=== PATIENT | male | born 1960 | race Caucasian/White ===

== ENCOUNTER 2021-01-02 14:24 | Inpatient (IN) | payer OTHER ==
[~2021-01-02] VITALS: Ht 165.1 cm; Wt 60.8 kg
[2021-01-02] MEDS ORDERED: ACETAMINOPHEN 325 MG TABLET PO PRN (17:45)
[2021-01-02] MEDS ORDERED: OxyCODONE HCL 5 MG IR TABLET PO PRN (17:45)
[2021-01-02] MEDS ORDERED: HydrOXYzine HCL 25 MG TABLET PO PRN (17:45)
[2021-01-02] MEDS ORDERED: DEXTROSE 50%-WATER 25 GM/50 ML SYRINGE IVP PRN (17:45)
[2021-01-02 18:09] VITALS: BP 138/76
[2021-01-02] MEDS: INSULIN LISPRO 100 UNITS/ML SQ PRN ×2 (19:00→20:26)
[2021-01-02 19:09] LABS: GLUCOMETER DEV NAME(LOC) 2WR.1C; GLUCOSE,POINT OF CARE 189 MG/DL (70-110)
[2021-01-02] MEDS: GABAPENTIN 300 MG CAPSULE PO SCH (20:27)
[2021-01-02] MEDS: LevETIRAcetam 500 MG TABLET PO SCH (20:27)
[2021-01-02] MEDS: DOCUSATE SODIUM 100 MG CAPSULE PO SCH (20:27)
[2021-01-02] MEDS: ENOXAPARIN SODIUM 30 MG/0.3 ML PF SYRINGE SQ SCH (20:27)
[2021-01-02] MEDS ORDERED: SENNA 187 MG TABLET PO SCH (21:00)
[2021-01-02 21:35] LABS: GLUCOMETER DEV NAME(LOC) 2WR.1C; GLUCOSE,POINT OF CARE 196 MG/DL (70-110)
[2021-01-02 23:50] VITALS: BP 152/87
[2021-01-03 06:13] LABS: GLUCOMETER DEV NAME(LOC) 2WR.2B; GLUCOSE,POINT OF CARE 115 MG/DL (70-110)
[2021-01-03 06:48] LABS: BASOPHILS % (AUTO) 0.7 % (0.0-2.0); EOSINOPHILS % (AUTO) 2.9 % (1.0-6.0); HEMATOCRIT 41.4 % (41-53); HEMOGLOBIN 14.4 g/dL (13.5-17.5); LYMPHOCYTES # (AUTO) 1.5 K/uL (1.0-4.8); MEAN CORPUSCULAR HEMOGLOBIN 31.3 pg (26.0-34.0); MEAN CORPUSCULAR HGB CONC 34.8 G/dL (31.0-37.0); MEAN CORPUSCULAR VOLUME 90 fL (80-100); MONOCYTES # (AUTO) 0.6 K/uL (0.1-1.0); MONOCYTES % (AUTO) 8.6 % (2.0-9.0); NEUTROPHILS # (AUTO) 4.2 K/uL (1.8-7.7); NEUTROPHILS % (AUTO) 64.8 % (40.0-70.0); PLATELET COUNT (AUTO) 142 K/uL (150-450); RED BLOOD CELL COUNT(AUTO) 4.61 MIL/uL (4.50-5.90); RED CELL DISTRIBUTION WIDTH 12.5 % (11.5-14.5)
[2021-01-03 07:45] VITALS: BP 163/94
[2021-01-03 07:47] LABS: ALANINE AMINOTRANSFERASE 23 U/L (12-78); ALBUMIN 3.7 g/dL (3.4-5.0); ALKALINE PHOSPHATASE 71 U/L (46-116); ANION GAP 7 mmol/L (8-16); ASPARTATE AMINOTRANSFERASE 11 U/L (15-37); BILIRUBIN,TOTAL 0.9 mg/dL (0.1-1.0); CALCIUM, TOTAL 9.1 mg/dL (8.8-10.5); CARBON DIOXIDE 31 mmol/L (22-29); CHLORIDE 104 mmol/L (98-107); CREATININE 0.72 mg/dL (0.60-1.30); GLOMERULAR FILTR. RATE CALC > 60 mL/min (>60); GLUCOSE,RANDOM 110 mg/dL (70-110); POTASSIUM 3.7 mmol/L (3.5-5.1); SODIUM SERUM 142 mmol/L (136-145); TOTAL PROTEIN, SERUM 7.2 g/dL (6.4-8.2); UREA NITROGEN, BLOOD 25 mg/dL (7-18)
[2021-01-03] MEDS: DOCUSATE SODIUM 100 MG CAPSULE PO SCH (08:46)
[2021-01-03] MEDS: LOSARTAN POTASSIUM 50 MG TABLET PO SCH (08:46)
[2021-01-03] MEDS: LevETIRAcetam 500 MG TABLET PO SCH ×2 (08:46→20:37)
[2021-01-03] MEDS: ENOXAPARIN SODIUM 30 MG/0.3 ML PF SYRINGE SQ SCH ×2 (08:46→20:38)
[2021-01-03] MEDS: GABAPENTIN 300 MG CAPSULE PO SCH ×3 (08:46→20:37)
[2021-01-03] MEDS: AmLODIPine BESYLATE 10 MG TABLET PO SCH (08:47)
[2021-01-03] MEDS: LIDOCAINE 5% TRANSDERMAL PATCH TD SCH (08:47)
[2021-01-03] MEDS ORDERED: METOPROLOL TARTRATE 25 MG TABLET PO SCH (09:00)
[2021-01-03] MEDS ORDERED: MELATONIN 5 MG TABLET PO PRN (13:00)
[2021-01-03 16:06] LABS: GLUCOMETER DEV NAME(LOC) 2WR.2B; GLUCOSE,POINT OF CARE 135 MG/DL (70-110)
[2021-01-03 17:21] VITALS: BP 135/79
[2021-01-03 17:39] LABS: GLUCOMETER DEV NAME(LOC) 2WR.2B; GLUCOSE,POINT OF CARE 105 MG/DL (70-110)
[2021-01-03] MEDS: TAMSULOSIN HCL 0.4 MG CAPSULE PO SCH (20:37)
[2021-01-03] MEDS: DOCUSATE SODIUM 250 MG CAPSULE PO SCH (20:37)
[2021-01-03] MEDS: -LIDODERM PATCH NOTE- MISC SCH (20:38)
[2021-01-03] MEDS: METOPROLOL TARTRATE 25 MG TABLET PO SCH (20:38)
[2021-01-03] MEDS: SENNA 187 MG TABLET PO SCH (20:38)
[2021-01-03] MEDS: INSULIN LISPRO 100 UNITS/ML SQ PRN (20:57)
[2021-01-03 22:40] LABS: GLUCOMETER DEV NAME(LOC) 2WR.1C; GLUCOSE,POINT OF CARE 166 MG/DL (70-110)
[2021-01-04] VITALS: BP 148/78
[2021-01-04 06:39] LABS: CHOL/HDL RATIO 3.7 (4.2-7.3)
[2021-01-04 07:07] LABS: GLUCOMETER DEV NAME(LOC) 2WR.1C; GLUCOSE,POINT OF CARE 97 MG/DL (70-110)
[2021-01-04 07:33] LABS: HEMOGLOBIN A1C 5.6 % (3.8-5.6)
[2021-01-04] MEDS: AmLODIPine BESYLATE 10 MG TABLET PO SCH (07:33)
[2021-01-04] MEDS: DOCUSATE SODIUM 250 MG CAPSULE PO SCH ×2 (07:33→20:14)
[2021-01-04] MEDS: LOSARTAN POTASSIUM 50 MG TABLET PO SCH (07:33)
[2021-01-04] MEDS: ENOXAPARIN SODIUM 30 MG/0.3 ML PF SYRINGE SQ SCH ×2 (07:33→20:14)
[2021-01-04] MEDS: GABAPENTIN 300 MG CAPSULE PO SCH ×3 (07:33→20:15)
[2021-01-04] MEDS: METOPROLOL TARTRATE 25 MG TABLET PO SCH ×2 (07:33→20:15)
[2021-01-04] MEDS: LIDOCAINE 5% TRANSDERMAL PATCH TD SCH (07:34)
[2021-01-04] MEDS: LevETIRAcetam 500 MG TABLET PO SCH ×2 (07:34→20:15)
[2021-01-04 08:37] VITALS: BP 140/92
[2021-01-04] MEDS: INSULIN LISPRO 100 UNITS/ML SQ PRN ×2 (12:03→20:23)
[2021-01-04 13:24] LABS: GLUCOMETER DEV NAME(LOC) 2WR.1C; GLUCOSE,POINT OF CARE 146 MG/DL (70-110)
[2021-01-04 16:00] VITALS: BP 149/81
[2021-01-04 17:56] LABS: GLUCOMETER DEV NAME(LOC) 2WR.2B; GLUCOSE,POINT OF CARE 88 MG/DL (70-110)
[2021-01-04 20:00] VITALS: BP 134/74
[2021-01-04] MEDS: SENNA 187 MG TABLET PO SCH (20:14)
[2021-01-04] MEDS: TAMSULOSIN HCL 0.4 MG CAPSULE PO SCH (20:14)
[2021-01-04] MEDS: -LIDODERM PATCH NOTE- MISC SCH (20:15)
[2021-01-04 21:39] LABS: GLUCOMETER DEV NAME(LOC) 2WR.1C; GLUCOSE,POINT OF CARE 176 MG/DL (70-110)
[2021-01-05 01:55] VITALS: BP 150/93
[2021-01-05 06:06] LABS: GLUCOMETER DEV NAME(LOC) 2WR.2B; GLUCOSE,POINT OF CARE 95 MG/DL (70-110)
[2021-01-05 07:30] VITALS: BP 141/73
[2021-01-05] MEDS: ENOXAPARIN SODIUM 30 MG/0.3 ML PF SYRINGE SQ SCH ×2 (08:59→20:28)
[2021-01-05] MEDS: LOSARTAN POTASSIUM 50 MG TABLET PO SCH (09:00)
[2021-01-05] MEDS: GABAPENTIN 300 MG CAPSULE PO SCH ×3 (09:00→20:27)
[2021-01-05] MEDS: DOCUSATE SODIUM 250 MG CAPSULE PO SCH ×2 (09:00→20:27)
[2021-01-05] MEDS: LIDOCAINE 5% TRANSDERMAL PATCH TD SCH (09:00)
[2021-01-05] MEDS: AmLODIPine BESYLATE 10 MG TABLET PO SCH (09:00)
[2021-01-05] MEDS: METOPROLOL TARTRATE 25 MG TABLET PO SCH ×2 (09:00→20:27)
[2021-01-05] MEDS: LevETIRAcetam 500 MG TABLET PO SCH ×2 (09:00→20:26)
[2021-01-05] MEDS: INSULIN LISPRO 100 UNITS/ML SQ PRN ×2 (11:48→20:44)
[2021-01-05 13:20] LABS: GLUCOMETER DEV NAME(LOC) 2WR.2B; GLUCOSE,POINT OF CARE 166 MG/DL (70-110)
[2021-01-05 16:15] VITALS: BP 143/73
[2021-01-05 17:47] LABS: GLUCOMETER DEV NAME(LOC) 2WR.1C; GLUCOSE,POINT OF CARE 140 MG/DL (70-110)
[2021-01-05 20:25] VITALS: BP 149/82
[2021-01-05] MEDS: TAMSULOSIN HCL 0.4 MG CAPSULE PO SCH (20:26)
[2021-01-05] MEDS: SENNA 187 MG TABLET PO SCH (20:27)
[2021-01-05] MEDS: -LIDODERM PATCH NOTE- MISC SCH (20:28)
[2021-01-05 21:18] LABS: GLUCOMETER DEV NAME(LOC) 2WR.2B; GLUCOSE,POINT OF CARE 160 MG/DL (70-110)
[2021-01-06 02:19] VITALS: BP 132/73
[2021-01-06 06:04] LABS: GLUCOMETER DEV NAME(LOC) 2WR.1C; GLUCOSE,POINT OF CARE 101 MG/DL (70-110)
[2021-01-06 08:00] VITALS: BP 153/81
[2021-01-06] MEDS: METOPROLOL TARTRATE 25 MG TABLET PO SCH ×2 (08:52→20:20)
[2021-01-06] MEDS: DOCUSATE SODIUM 250 MG CAPSULE PO SCH ×2 (08:52→20:20)
[2021-01-06] MEDS: LOSARTAN POTASSIUM 50 MG TABLET PO SCH (08:52)
[2021-01-06] MEDS: GABAPENTIN 300 MG CAPSULE PO SCH ×3 (08:52→20:20)
[2021-01-06] MEDS: LevETIRAcetam 500 MG TABLET PO SCH ×2 (08:52→20:19)
[2021-01-06] MEDS: AmLODIPine BESYLATE 10 MG TABLET PO SCH (08:52)
[2021-01-06] MEDS: LIDOCAINE 5% TRANSDERMAL PATCH TD SCH (08:53)
[2021-01-06] MEDS: ENOXAPARIN SODIUM 30 MG/0.3 ML PF SYRINGE SQ SCH ×2 (08:53→20:20)
[2021-01-06] MEDS: INSULIN LISPRO 100 UNITS/ML SQ PRN (12:34)
[2021-01-06 13:54] LABS: GLUCOMETER DEV NAME(LOC) 2WR.1C; GLUCOSE,POINT OF CARE 156 MG/DL (70-110)
[2021-01-06 16:04] VITALS: BP 116/69
[2021-01-06 17:33] LABS: GLUCOMETER DEV NAME(LOC) 2WR.2B; GLUCOSE,POINT OF CARE 134 MG/DL (70-110)
[2021-01-06] MEDS: SENNA 187 MG TABLET PO SCH (20:20)
[2021-01-06] MEDS: TAMSULOSIN HCL 0.4 MG CAPSULE PO SCH (20:20)
[2021-01-06 20:23] VITALS: BP 148/76
[2021-01-06] MEDS: -LIDODERM PATCH NOTE- MISC SCH (20:24)
[2021-01-06 22:13] LABS: GLUCOMETER DEV NAME(LOC) 2WR.2B; GLUCOSE,POINT OF CARE 120 MG/DL (70-110)
[2021-01-07 00:45] VITALS: BP 149/87
[2021-01-07 05:52] LABS: GLUCOMETER DEV NAME(LOC) 2WR.2B; GLUCOSE,POINT OF CARE 112 MG/DL (70-110)
[2021-01-07] MEDS: LIDOCAINE 5% TRANSDERMAL PATCH TD SCH (08:10)
[2021-01-07] MEDS: LOSARTAN POTASSIUM 50 MG TABLET PO SCH (08:10)
[2021-01-07] MEDS: DOCUSATE SODIUM 250 MG CAPSULE PO SCH ×2 (08:10→20:22)
[2021-01-07] MEDS: LevETIRAcetam 500 MG TABLET PO SCH ×2 (08:10→20:22)
[2021-01-07] MEDS: AmLODIPine BESYLATE 10 MG TABLET PO SCH (08:10)
[2021-01-07] MEDS: ENOXAPARIN SODIUM 30 MG/0.3 ML PF SYRINGE SQ SCH ×2 (08:10→20:22)
[2021-01-07] MEDS: METOPROLOL TARTRATE 25 MG TABLET PO SCH ×2 (08:10→20:26)
[2021-01-07] MEDS: GABAPENTIN 300 MG CAPSULE PO SCH ×3 (08:10→20:22)
[2021-01-07 08:40] VITALS: BP 141/77
[2021-01-07 14:03] LABS: GLUCOMETER DEV NAME(LOC) 2WR.2B; GLUCOSE,POINT OF CARE 97 MG/DL (70-110)
[2021-01-07 16:05] VITALS: BP 144/82
[2021-01-07 17:58] LABS: GLUCOMETER DEV NAME(LOC) 2WR.2B; GLUCOSE,POINT OF CARE 103 MG/DL (70-110)
[2021-01-07] MEDS: -LIDODERM PATCH NOTE- MISC SCH (20:22)
[2021-01-07] MEDS: SENNA 187 MG TABLET PO SCH (20:22)
[2021-01-07] MEDS: TAMSULOSIN HCL 0.4 MG CAPSULE PO SCH (20:22)
[2021-01-07 20:25] VITALS: BP 147/93
[2021-01-07 21:42] LABS: GLUCOMETER DEV NAME(LOC) 2WR.2B; GLUCOSE,POINT OF CARE 104 MG/DL (70-110)
[2021-01-08 03:26] VITALS: BP 139/75
[2021-01-08 08:02] VITALS: BP 151/77
[2021-01-08] MEDS: DOCUSATE SODIUM 250 MG CAPSULE PO SCH ×2 (08:05→20:41)
[2021-01-08] MEDS: AmLODIPine BESYLATE 10 MG TABLET PO SCH (08:05)
[2021-01-08] MEDS: GABAPENTIN 300 MG CAPSULE PO SCH ×3 (08:05→20:41)
[2021-01-08] MEDS: ENOXAPARIN SODIUM 30 MG/0.3 ML PF SYRINGE SQ SCH ×2 (08:05→20:41)
[2021-01-08] MEDS: METOPROLOL TARTRATE 25 MG TABLET PO SCH ×2 (08:05→21:17)
[2021-01-08] MEDS: LOSARTAN POTASSIUM 50 MG TABLET PO SCH (08:05)
[2021-01-08] MEDS: LIDOCAINE 5% TRANSDERMAL PATCH TD SCH (08:07)
[2021-01-08 12:45] LABS: GLUCOMETER DEV NAME(LOC) 2WR.2B; GLUCOSE,POINT OF CARE 164 MG/DL (70-110)
[2021-01-08] MEDS: INSULIN LISPRO 100 UNITS/ML SQ PRN (13:10)
[2021-01-08 15:22] LABS: GLUCOMETER DEV NAME(LOC) 2WR.1C; GLUCOSE,POINT OF CARE 136 MG/DL (70-110)
[2021-01-08 16:00] VITALS: BP 149/85
[2021-01-08 18:10] LABS: GLUCOMETER DEV NAME(LOC) 2WR.1C; GLUCOSE,POINT OF CARE 132 MG/DL (70-110)
[2021-01-08] MEDS: SENNA 187 MG TABLET PO SCH (20:40)
[2021-01-08 20:42] VITALS: BP 158/86
[2021-01-08] MEDS: -LIDODERM PATCH NOTE- MISC SCH (21:15)
[2021-01-08] MEDS: TAMSULOSIN HCL 0.4 MG CAPSULE PO SCH (21:17)
[2021-01-08 22:10] LABS: GLUCOMETER DEV NAME(LOC) 2WR.2B; GLUCOSE,POINT OF CARE 123 MG/DL (70-110)
[2021-01-09 00:16] VITALS: BP 168/85
[2021-01-09 05:44] LABS: GLUCOMETER DEV NAME(LOC) 2WR.2B; GLUCOSE,POINT OF CARE 104 MG/DL (70-110)
[2021-01-09 06:45] LABS: ANION GAP 3 mmol/L (8-16); CALCIUM, TOTAL 9.1 mg/dL (8.8-10.5); CARBON DIOXIDE 33 mmol/L (22-29); CHLORIDE 105 mmol/L (98-107); CREATININE 0.69 mg/dL (0.60-1.30); GLOMERULAR FILTR. RATE CALC > 60 mL/min (>60); GLUCOSE,RANDOM 103 mg/dL (70-110); POTASSIUM 3.7 mmol/L (3.5-5.1); SODIUM SERUM 141 mmol/L (136-145); UREA NITROGEN, BLOOD 18 mg/dL (7-18)
[2021-01-09 08:02] VITALS: BP 144/75
[2021-01-09] MEDS: METOPROLOL TARTRATE 25 MG TABLET PO SCH ×3 (08:11→20:36)
[2021-01-09] MEDS: DOCUSATE SODIUM 250 MG CAPSULE PO SCH ×2 (08:11→20:36)
[2021-01-09] MEDS: LOSARTAN POTASSIUM 50 MG TABLET PO SCH (08:12)
[2021-01-09] MEDS: GABAPENTIN 300 MG CAPSULE PO SCH ×3 (08:12→20:36)
[2021-01-09] MEDS: ENOXAPARIN SODIUM 30 MG/0.3 ML PF SYRINGE SQ SCH ×2 (08:12→20:36)
[2021-01-09] MEDS: LIDOCAINE 5% TRANSDERMAL PATCH TD SCH (08:13)
[2021-01-09] MEDS: AmLODIPine BESYLATE 10 MG TABLET PO SCH (08:13)
[2021-01-09 16:09] VITALS: BP 156/78
[2021-01-09 16:20] LABS: GLUCOMETER DEV NAME(LOC) 2WR.1C; GLUCOSE,POINT OF CARE 99 MG/DL (70-110)
[2021-01-09 18:24] LABS: GLUCOMETER DEV NAME(LOC) 2WR.1C; GLUCOSE,POINT OF CARE 98 MG/DL (70-110)
[2021-01-09] MEDS: SENNA 187 MG TABLET PO SCH (20:36)
[2021-01-09 20:49] VITALS: BP 176/84
[2021-01-09] MEDS: -LIDODERM PATCH NOTE- MISC SCH (21:08)
[2021-01-09] MEDS: TAMSULOSIN HCL 0.4 MG CAPSULE PO SCH (21:08)
[2021-01-09 21:17] VITALS: BP 169/84
[2021-01-09 22:02] LABS: GLUCOMETER DEV NAME(LOC) 2WR.1C; GLUCOSE,POINT OF CARE 125 MG/DL (70-110)
[2021-01-10 01:00] VITALS: BP 148/83
[2021-01-10 05:51] LABS: GLUCOMETER DEV NAME(LOC) 2WR.1C; GLUCOSE,POINT OF CARE 97 MG/DL (70-110)
[2021-01-10 07:19] VITALS: BP 156/88
[2021-01-10] MEDS: ENOXAPARIN SODIUM 30 MG/0.3 ML PF SYRINGE SQ SCH ×2 (08:03→20:56)
[2021-01-10] MEDS: LIDOCAINE 5% TRANSDERMAL PATCH TD SCH (08:03)
[2021-01-10] MEDS: LOSARTAN POTASSIUM 50 MG TABLET PO SCH (08:04)
[2021-01-10] MEDS: AmLODIPine BESYLATE 10 MG TABLET PO SCH (08:04)
[2021-01-10] MEDS: METOPROLOL TARTRATE 25 MG TABLET PO SCH ×2 (08:04→21:00)
[2021-01-10] MEDS: GABAPENTIN 300 MG CAPSULE PO SCH ×3 (08:04→20:56)
[2021-01-10] MEDS: DOCUSATE SODIUM 250 MG CAPSULE PO SCH ×2 (08:04→20:57)
[2021-01-10 09:48] VITALS: BP 141/64
[2021-01-10 14:38] LABS: GLUCOMETER DEV NAME(LOC) 2WR.1C; GLUCOSE,POINT OF CARE 100 MG/DL (70-110)
[2021-01-10 16:22] VITALS: BP 143/78
[2021-01-10] MEDS: INSULIN LISPRO 100 UNITS/ML SQ PRN (17:26)
[2021-01-10 17:36] LABS: GLUCOMETER DEV NAME(LOC) 2WR.2B; GLUCOSE,POINT OF CARE 169 MG/DL (70-110)
[2021-01-10 20:50] VITALS: BP 140/67
[2021-01-10] MEDS: TAMSULOSIN HCL 0.4 MG CAPSULE PO SCH (20:56)
[2021-01-10] MEDS: -LIDODERM PATCH NOTE- MISC SCH (20:57)
[2021-01-10] MEDS: SENNA 187 MG TABLET PO SCH (20:57)
[2021-01-10 23:17] LABS: GLUCOMETER DEV NAME(LOC) 2WR.2B; GLUCOSE,POINT OF CARE 115 MG/DL (70-110)
[2021-01-11 00:30] VITALS: BP 155/81
[2021-01-11 05:45] LABS: GLUCOMETER DEV NAME(LOC) 2WR.1C; GLUCOSE,POINT OF CARE 112 MG/DL (70-110)
[2021-01-11 08:00] VITALS: BP 147/82
[2021-01-11] MEDS: LIDOCAINE 5% TRANSDERMAL PATCH TD SCH (08:22)
[2021-01-11] MEDS: LOSARTAN POTASSIUM 50 MG TABLET PO SCH (08:23)
[2021-01-11] MEDS: DOCUSATE SODIUM 250 MG CAPSULE PO SCH ×2 (08:23→20:39)
[2021-01-11] MEDS: METOPROLOL TARTRATE 25 MG TABLET PO SCH ×2 (08:23→20:40)
[2021-01-11] MEDS: AmLODIPine BESYLATE 10 MG TABLET PO SCH (08:23)
[2021-01-11] MEDS: GABAPENTIN 300 MG CAPSULE PO SCH ×3 (08:23→20:40)
[2021-01-11] MEDS: ENOXAPARIN SODIUM 30 MG/0.3 ML PF SYRINGE SQ SCH (08:23)
[2021-01-11 10:04] LABS: BASOPHILS % (AUTO) 1.2 % (0.0-2.0); EOSINOPHILS % (AUTO) 2.4 % (1.0-6.0); HEMATOCRIT 39.4 % (41-53); HEMOGLOBIN 13.6 g/dL (13.5-17.5); LYMPHOCYTES # (AUTO) 0.8 K/uL (1.0-4.8); LYMPHOCYTES % (AUTO) 15.1 % (22.0-44.0); MEAN CORPUSCULAR HEMOGLOBIN 31.1 pg (26.0-34.0); MEAN CORPUSCULAR HGB CONC 34.6 G/dL (31.0-37.0); MEAN CORPUSCULAR VOLUME 90 fL (80-100); MONOCYTES # (AUTO) 0.4 K/uL (0.1-1.0); MONOCYTES % (AUTO) 8.2 % (2.0-9.0); NEUTROPHILS # (AUTO) 3.6 K/uL (1.8-7.7); NEUTROPHILS % (AUTO) 73.1 % (40.0-70.0); PLATELET COUNT (AUTO) 178 K/uL (150-450); RED BLOOD CELL COUNT(AUTO) 4.38 MIL/uL (4.50-5.90); RED CELL DISTRIBUTION WIDTH 12.5 % (11.5-14.5)
[2021-01-11] MEDS: INSULIN LISPRO 100 UNITS/ML SQ PRN ×2 (12:18→20:48)
[2021-01-11] MEDS: FAMOTIDINE 20 MG TABLET PO SCH (15:41)
[2021-01-11 16:50] LABS: GLUCOMETER DEV NAME(LOC) 2WR.1C; GLUCOSE,POINT OF CARE 171 MG/DL (70-110)
[2021-01-11 17:35] LABS: GLUCOMETER DEV NAME(LOC) 2WR.2B; GLUCOSE,POINT OF CARE 85 MG/DL (70-110)
[2021-01-11 17:48] VITALS: BP 158/59
[2021-01-11 20:26] LABS: GLUCOMETER DEV NAME(LOC) 2WR.1C; GLUCOSE,POINT OF CARE 188 MG/DL (70-110)
[2021-01-11 20:30] VITALS: BP 155/71
[2021-01-11] MEDS: TAMSULOSIN HCL 0.4 MG CAPSULE PO SCH (20:40)
[2021-01-11] MEDS: SENNA 187 MG TABLET PO SCH (20:41)
[2021-01-11] MEDS: -LIDODERM PATCH NOTE- MISC SCH (20:41)
[2021-01-12 02:39] VITALS: BP 136/65
[2021-01-12 03:21] LABS: APPEARANCE,URINE CLOUDY (CLEAR); BILIRUBIN,URINE NEGATIVE (NEGATIVE); GLUCOSE, URINE (UA) NEGATIVE (NEGATIVE); KETONES,URINE NEGATIVE (NEGATIVE); LEUKOCYTE ESTERASE ,URINE NEGATIVE (NEGATIVE); NITRATE,URINE NEGATIVE (NEGATIVE); OCCULT BLOOD,URINE LARGE (NEGATIVE); PROTEIN,URINE POS 1+ (NEGATIVE); UROBILINOGEN,URINE 0.2 mg/dL (<=1.0)
[2021-01-12 03:23] LABS: BACTERIA,URINE Rare /HPF (None Seen); RBC,URINE >100 /HPF (0-2); SQUAMOUS EPITHELIAL CELL,UR None Seen /LPF (None Seen); WBC,URINE 0-2 /HPF (0-5)
[2021-01-12 06:06] LABS: GLUCOMETER DEV NAME(LOC) 2WR.2B; GLUCOSE,POINT OF CARE 111 MG/DL (70-110)
[2021-01-12 08:20] VITALS: BP 156/85
[2021-01-12] MEDS: LOSARTAN POTASSIUM 50 MG TABLET PO SCH (08:31)
[2021-01-12] MEDS: DOCUSATE SODIUM 250 MG CAPSULE PO SCH ×2 (08:31→20:19)
[2021-01-12] MEDS: FAMOTIDINE 20 MG TABLET PO SCH ×2 (08:32→15:52)
[2021-01-12] MEDS: CITALOPRAM HYDROBROMIDE 10 MG TABLET PO SCH (08:32)
[2021-01-12] MEDS: AmLODIPine BESYLATE 10 MG TABLET PO SCH (08:32)
[2021-01-12] MEDS: GABAPENTIN 300 MG CAPSULE PO SCH ×3 (08:32→20:18)
[2021-01-12] MEDS: METOPROLOL TARTRATE 25 MG TABLET PO SCH ×2 (08:32→20:18)
[2021-01-12] MEDS: LIDOCAINE 5% TRANSDERMAL PATCH TD SCH (08:32)
[2021-01-12 13:39] LABS: GLUCOMETER DEV NAME(LOC) 2WR.2B; GLUCOSE,POINT OF CARE 131 MG/DL (70-110)
[2021-01-12 16:00] VITALS: BP 152/82
[2021-01-12 17:52] LABS: GLUCOMETER DEV NAME(LOC) 2WR.2B; GLUCOSE,POINT OF CARE 86 MG/DL (70-110)
[2021-01-12 20:15] VITALS: BP 162/52
[2021-01-12] MEDS: TAMSULOSIN HCL 0.4 MG CAPSULE PO SCH (20:18)
[2021-01-12] MEDS: SENNA 187 MG TABLET PO SCH (20:19)
[2021-01-12] MEDS: -LIDODERM PATCH NOTE- MISC SCH (20:19)
[2021-01-12] MEDS: INSULIN LISPRO 100 UNITS/ML SQ PRN (20:31)
[2021-01-12 20:58] LABS: GLUCOMETER DEV NAME(LOC) 2WR.2B; GLUCOSE,POINT OF CARE 147 MG/DL (70-110)
[2021-01-13 04:00] VITALS: BP 108/64
[2021-01-13 08:10] VITALS: BP 154/80
[2021-01-13] MEDS: CITALOPRAM HYDROBROMIDE 10 MG TABLET PO SCH (08:32)
[2021-01-13] MEDS: FAMOTIDINE 20 MG TABLET PO SCH ×2 (08:32→16:30)
[2021-01-13] MEDS: AmLODIPine BESYLATE 10 MG TABLET PO SCH (08:33)
[2021-01-13] MEDS: METOPROLOL TARTRATE 25 MG TABLET PO SCH ×2 (08:33→21:09)
[2021-01-13] MEDS: DOCUSATE SODIUM 250 MG CAPSULE PO SCH ×2 (08:33→21:09)
[2021-01-13] MEDS: LIDOCAINE 5% TRANSDERMAL PATCH TD SCH (08:33)
[2021-01-13] MEDS: LOSARTAN POTASSIUM 50 MG TABLET PO SCH (08:33)
[2021-01-13] MEDS: GABAPENTIN 300 MG CAPSULE PO SCH ×3 (08:33→21:09)
[2021-01-13 12:33] LABS: GLUCOMETER DEV NAME(LOC) 2WR.1C; GLUCOSE,POINT OF CARE 109 MG/DL (70-110)
[2021-01-13 16:15] VITALS: BP 128/69
[2021-01-13 18:21] LABS: GLUCOMETER DEV NAME(LOC) 2WR.2B; GLUCOSE,POINT OF CARE 89 MG/DL (70-110)
[2021-01-13 19:11] LABS: APPEARANCE,URINE CLEAR (CLEAR); BILIRUBIN,URINE NEGATIVE (NEGATIVE); GLUCOSE, URINE (UA) NEGATIVE (NEGATIVE); KETONES,URINE NEGATIVE (NEGATIVE); LEUKOCYTE ESTERASE ,URINE NEGATIVE (NEGATIVE); NITRATE,URINE NEGATIVE (NEGATIVE); OCCULT BLOOD,URINE TRACE (NEGATIVE); PH,URINE 5.5 (5.0-8.0); PROTEIN,URINE NEGATIVE (NEGATIVE); UROBILINOGEN,URINE 0.2 mg/dL (<=1.0)
[2021-01-13 19:20] LABS: BACTERIA,URINE None Seen /HPF (None Seen); SQUAMOUS EPITHELIAL CELL,UR Rare /LPF (None Seen); WBC,URINE 0-2 /HPF (0-5)
[2021-01-13 20:40] VITALS: BP 125/75
[2021-01-13] MEDS: TAMSULOSIN HCL 0.4 MG CAPSULE PO SCH (21:09)
[2021-01-13] MEDS: SENNA 187 MG TABLET PO SCH (21:09)
[2021-01-13] MEDS: -LIDODERM PATCH NOTE- MISC SCH (21:09)
[2021-01-14] VITALS: BP 138/71
[2021-01-14] MEDS: FAMOTIDINE 20 MG TABLET PO SCH ×2 (05:54→15:50)
[2021-01-14 06:16] LABS: GLUCOMETER DEV NAME(LOC) 2WR.2B; GLUCOSE,POINT OF CARE 91 MG/DL (70-110)
[2021-01-14 07:49] VITALS: BP 115/77
[2021-01-14 08:05] VITALS: BP 115/77
[2021-01-14] MEDS: GABAPENTIN 300 MG CAPSULE PO SCH ×3 (08:06→19:58)
[2021-01-14] MEDS: DOCUSATE SODIUM 250 MG CAPSULE PO SCH ×2 (08:06→19:57)
[2021-01-14] MEDS: AmLODIPine BESYLATE 10 MG TABLET PO SCH (08:06)
[2021-01-14] MEDS: METOPROLOL TARTRATE 25 MG TABLET PO SCH ×2 (08:06→19:58)
[2021-01-14] MEDS: CITALOPRAM HYDROBROMIDE 10 MG TABLET PO SCH (08:06)
[2021-01-14] MEDS: LIDOCAINE 5% TRANSDERMAL PATCH TD SCH (08:07)
[2021-01-14] MEDS: LOSARTAN POTASSIUM 50 MG TABLET PO SCH (08:07)
[2021-01-14 13:06] LABS: GLUCOMETER DEV NAME(LOC) 2WR.2B; GLUCOSE,POINT OF CARE 89 MG/DL (70-110)
[2021-01-14 17:30] VITALS: BP 157/80
[2021-01-14 19:51] LABS: GLUCOMETER DEV NAME(LOC) 2WR.2B; GLUCOSE,POINT OF CARE 117 MG/DL (70-110)
[2021-01-14 19:57] VITALS: BP 148/75
[2021-01-14] MEDS: SENNA 187 MG TABLET PO SCH (19:57)
[2021-01-14] MEDS: TAMSULOSIN HCL 0.4 MG CAPSULE PO SCH (19:58)
[2021-01-14] MEDS: -LIDODERM PATCH NOTE- MISC SCH (20:00)
[2021-01-15 01:00] VITALS: BP 151/76
[2021-01-15] MEDS: FAMOTIDINE 20 MG TABLET PO SCH ×2 (05:37→15:27)
[2021-01-15 08:01] VITALS: BP 128/68
[2021-01-15] MEDS: CITALOPRAM HYDROBROMIDE 10 MG TABLET PO SCH (08:07)
[2021-01-15] MEDS: METOPROLOL TARTRATE 25 MG TABLET PO SCH ×2 (08:07→20:57)
[2021-01-15] MEDS: AmLODIPine BESYLATE 10 MG TABLET PO SCH (08:07)
[2021-01-15] MEDS: LIDOCAINE 5% TRANSDERMAL PATCH TD SCH (08:07)
[2021-01-15] MEDS: LOSARTAN POTASSIUM 50 MG TABLET PO SCH (08:07)
[2021-01-15] MEDS: GABAPENTIN 300 MG CAPSULE PO SCH ×3 (08:08→20:58)
[2021-01-15] MEDS: DOCUSATE SODIUM 250 MG CAPSULE PO SCH ×2 (08:08→20:57)
[2021-01-15 16:15] LABS: GLUCOMETER DEV NAME(LOC) 2WR.1C; GLUCOSE,POINT OF CARE 100 MG/DL (70-110)
[2021-01-15 16:57] VITALS: BP 129/77
[2021-01-15 17:43] LABS: GLUCOMETER DEV NAME(LOC) 2WR.1C; GLUCOSE,POINT OF CARE 140 MG/DL (70-110)
[2021-01-15 20:56] VITALS: BP 147/82
[2021-01-15] MEDS: -LIDODERM PATCH NOTE- MISC SCH (20:57)
[2021-01-15] MEDS: TAMSULOSIN HCL 0.4 MG CAPSULE PO SCH (20:57)
[2021-01-15] MEDS: SENNA 187 MG TABLET PO SCH (20:58)
[2021-01-16] VITALS: BP 133/70
[2021-01-16] MEDS: FAMOTIDINE 20 MG TABLET PO SCH ×2 (05:41→19:53)
[2021-01-16 05:57] LABS: GLUCOMETER DEV NAME(LOC) 2WR.1C; GLUCOSE,POINT OF CARE 94 MG/DL (70-110)
[2021-01-16 08:41] VITALS: BP 157/65
[2021-01-16] MEDS: CITALOPRAM HYDROBROMIDE 10 MG TABLET PO SCH (08:44)
[2021-01-16] MEDS: AmLODIPine BESYLATE 10 MG TABLET PO SCH (08:44)
[2021-01-16] MEDS: GABAPENTIN 300 MG CAPSULE PO SCH ×3 (08:44→21:04)
[2021-01-16] MEDS: LOSARTAN POTASSIUM 50 MG TABLET PO SCH (08:44)
[2021-01-16] MEDS: LIDOCAINE 5% TRANSDERMAL PATCH TD SCH (08:44)
[2021-01-16] MEDS: DOCUSATE SODIUM 250 MG CAPSULE PO SCH ×3 (08:44→19:54)
[2021-01-16] MEDS: METOPROLOL TARTRATE 25 MG TABLET PO SCH ×2 (08:45→19:55)
[2021-01-16 10:53] VITALS: BP 138/63
[2021-01-16 18:19] LABS: GLUCOMETER DEV NAME(LOC) 2WR.1C; GLUCOSE,POINT OF CARE 102 MG/DL (70-110)
[2021-01-16] MEDS: -LIDODERM PATCH NOTE- MISC SCH (19:53)
[2021-01-16 19:54] VITALS: BP 163/80
[2021-01-16] MEDS: SENNA 187 MG TABLET PO SCH (19:54)
[2021-01-16] MEDS: TAMSULOSIN HCL 0.4 MG CAPSULE PO SCH (19:55)
[2021-01-17 04:30] VITALS: BP 150/78
[2021-01-17] MEDS: FAMOTIDINE 20 MG TABLET PO SCH ×2 (05:54→16:55)
[2021-01-17 06:20] LABS: GLUCOMETER DEV NAME(LOC) 2WR.2B; GLUCOSE,POINT OF CARE 91 MG/DL (70-110)
[2021-01-17] MEDS ORDERED: SENN-2 PO (07:21)
[2021-01-17] MEDS ORDERED: DOCU-350 PO (07:21)
[2021-01-17] MEDS ORDERED: INSU100V SQ (07:21)
[2021-01-17] MEDS ORDERED: LOSA50TA37 PO (07:21)
[2021-01-17] MEDS ORDERED: TAMS-13 PO (07:21)
[2021-01-17] MEDS ORDERED: GABA-1181 PO (07:21)
[2021-01-17] MEDS ORDERED: AMLO-258 PO (07:21)
[2021-01-17] MEDS: DOCUSATE SODIUM 250 MG CAPSULE PO SCH ×2 (09:14→20:11)
[2021-01-17] MEDS: AmLODIPine BESYLATE 10 MG TABLET PO SCH (09:14)
[2021-01-17] MEDS: CITALOPRAM HYDROBROMIDE 10 MG TABLET PO SCH (09:14)
[2021-01-17] MEDS: GABAPENTIN 300 MG CAPSULE PO SCH ×3 (09:14→20:11)
[2021-01-17] MEDS: LOSARTAN POTASSIUM 50 MG TABLET PO SCH (09:14)
[2021-01-17] MEDS: METOPROLOL TARTRATE 25 MG TABLET PO SCH ×2 (09:14→20:11)
[2021-01-17] MEDS: LIDOCAINE 5% TRANSDERMAL PATCH TD SCH (09:15)
[2021-01-17 10:21] VITALS: BP 132/71
[2021-01-17 16:14] VITALS: BP_SYST 169; BP_SYST 96; BP_DIAS 60; BP_DIAS 79
[2021-01-17 17:54] LABS: GLUCOMETER DEV NAME(LOC) 2WR.2B; GLUCOSE,POINT OF CARE 104 MG/DL (70-110)
[2021-01-17 18:00] VITALS: BP 132/69
[2021-01-17 19:38] VITALS: BP 132/69
[2021-01-17] MEDS: -LIDODERM PATCH NOTE- MISC SCH (20:11)
[2021-01-17] MEDS: SENNA 187 MG TABLET PO SCH (20:11)
[2021-01-17] MEDS: TAMSULOSIN HCL 0.4 MG CAPSULE PO SCH (20:11)
[2021-01-18] VITALS: BP 144/76
[2021-01-18] MEDS: FAMOTIDINE 20 MG TABLET PO SCH (05:40)
[2021-01-18 06:21] LABS: GLUCOMETER DEV NAME(LOC) 2WR.2B; GLUCOSE,POINT OF CARE 92 MG/DL (70-110)
[2021-01-18] MEDS ORDERED: FAMO20 PO (07:13)
[2021-01-18] MEDS ORDERED: CITA10TA99 PO (07:13)
[2021-01-18] MEDS ORDERED: METO25 PO (07:13)
[2021-01-18 07:35] VITALS: BP 141/61
[2021-01-18] MEDS: CITALOPRAM HYDROBROMIDE 10 MG TABLET PO SCH (07:50)
[2021-01-18] MEDS: AmLODIPine BESYLATE 10 MG TABLET PO SCH (07:50)
[2021-01-18] MEDS: GABAPENTIN 300 MG CAPSULE PO SCH (07:52)
[2021-01-18] MEDS: LIDOCAINE 5% TRANSDERMAL PATCH TD SCH (07:52)
[2021-01-18] MEDS: DOCUSATE SODIUM 250 MG CAPSULE PO SCH ×2 (07:52→08:03)
[2021-01-18] MEDS: METOPROLOL TARTRATE 25 MG TABLET PO SCH (07:52)
[2021-01-18] MEDS: LOSARTAN POTASSIUM 50 MG TABLET PO SCH (07:52)
[2021-01-18 13:00] VITALS: BP 130/76
[2021-01-18 13:33] LABS: GLUCOMETER DEV NAME(LOC) 2WR.2B; GLUCOSE,POINT OF CARE 100 MG/DL (70-110)
== END 2021-01-18 13:30 | disposition home or self-care (01) | DRG 55 ==
LOC: 2WR 17:22
PROVIDERS: ADMIT Physical Medicine & Rehabilitation; ATTEND Physical Medicine & Rehabilitation
DX: S06.6X0A Traumatic subarachnoid hemorrhage without loss of consciousness, initial encounter (principal); R56.9 Unspecified convulsions; R13.10 Dysphagia, unspecified; R47.01 Aphasia; G81.94 Hemiplegia, unspecified affecting left nondominant side; D64.9 Anemia, unspecified; E11.9 Type 2 diabetes mellitus without complications; G47.00 Insomnia, unspecified; I10 Essential (primary) hypertension; R47.1 Dysarthria and anarthria; N40.0 Benign prostatic hyperplasia without lower urinary tract symptoms; K59.00 Constipation, unspecified; L03.113 Cellulitis of right upper limb; E86.0 Dehydration; F32.9 Major depressive disorder, single episode, unspecified; R31.9 Hematuria, unspecified
CPT/HCPCS: 80048; 80053; 80061; 81001; 82271; 82962; 83036; 84153; 85025; 87081; 92507; 92508; 92523; 93005; 97110; 97112; 97116; 97150; 97163; 97167; 97530; 97535; 99366; J1650

== ENCOUNTER → 2021-05-29 | Outpatient (CLI) | payer OTHER ==
[~2021-05-29] MED LIST: AMLO-258 PO; CITA10TA99 PO; DOCU-350 PO; FAMO20 PO; GABA-1181 PO; INSU100V SQ; LOSA50TA37 PO; METO25 PO; TAMS-13 PO
== END | disposition home or self-care (01) ==
LOC: RADMN 12:28
PROVIDERS: ATTEND Physical Medicine & Rehabilitation
DX: R13.10 Dysphagia, unspecified (principal)
CPT/HCPCS: 74230